=== PATIENT | female | born 1960 | race Caucasian/White ===

== ENCOUNTER 2017-08-17 21:02 | Emergency (ER) | payer OTHER ==
[~2017-08-17] VITALS: Ht 152.4 cm; Wt 56.7 kg
[2017-08-17 21:15] VITALS: BP 143/63
== END 2017-08-17 21:43 | disposition home or self-care (01) ==
LOC: ER 21:03
DX: T63.481A Toxic effect of venom of other arthropod, accidental (unintentional), initial encounter (principal); F31.9 Bipolar disorder, unspecified; Y92.89 Other specified places as the place of occurrence of the external cause
CPT/HCPCS: 99283; A4606; Z7610

== ENCOUNTER 2021-01-21 22:24 | Emergency (ER) | payer OTHER ==
[~2021-01-21] VITALS: Ht 152.4 cm; Wt 54.4 kg
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
--- NOTE | 2021-01-21 22:59 | NUR ---
BEING TRANSFERRED TO CT
[2021-01-21] MEDS ORDERED: FLUORESCEIN SODIUM OPHTH 1 EA STRIP ONE (23:18)
[2021-01-22] MEDS ORDERED: TETRAcaine 5 ML BOTTLE EACHEYE ONE
--- NOTE | 2021-01-22 00:08 | NUR ---
PT DISCHARGED HOME IN STABLE CONDITION. WRITTEN AND VERBAL DISCHARGE INSTRUCTIONS PROVIDED AND SHE VERBALIZED UNDERSTANDING. COPIES OF CT SCANS PROVIDED. VSS STABLE AT TIME OF DISCHARGE, PICKED UP BY BOYFRIEND.
[2021-01-22 00:09] VITALS: BP 126/81
== END 2021-01-22 00:10 | disposition home or self-care (01) ==
LOC: ER 22:27
DX: S05.11XA Contusion of eyeball and orbital tissues, right eye, initial encounter (principal); R51.9 Headache, unspecified; E78.5 Hyperlipidemia, unspecified; F31.9 Bipolar disorder, unspecified; F17.200 Nicotine dependence, unspecified, uncomplicated; V49.49XA Driver injured in collision with other motor vehicles in traffic accident, initial encounter; Y93.89 Activity, other specified; Y92.488 Other paved roadways as the place of occurrence of the external cause; Y99.8 Other external cause status
CPT/HCPCS: 70450-TC; 70486-TC; 72125-TC